=== PATIENT | female | born 1970 | race Caucasian/White ===

== ENCOUNTER → 2019-03-15 | Outpatient (CLI) | payer BC ==
--- NOTE | 2019-03-19 08:46 | MM ---
Reason for exam: screening (asymptomatic). Last mammogram was performed 4 years and 2 months ago. History: Family history of breast cancer in aunt. Took hormonal contraceptives for 6 years. Physical Findings: A clinical breast exam by your physician is recommended on an annual basis and results should be correlated with mammographic findings. MG 3D Screening Mammo W/Cad Bilateral CC and MLO view(s) were taken. Prior study comparison: January 10, 2015, bilateral MG screening mammo w CAD. April 23, 2013, bilateral digital screening mammo w/CAD. The breast tissue is extremely dense which could obscure a lesion on mammography. No significant changes when compared with prior studies. ASSESSMENT: Negative, BI-RAD 1 RECOMMENDATION: Routine screening mammogram of both breasts in 1 year.
== END | disposition home or self-care (01) ==
LOC: RADMAMWWP 14:25
PROVIDERS: ATTEND Obstetrics & Gynecology
DX: Z12.31 Encounter for screening mammogram for malignant neoplasm of breast (principal); Z80.3 Family history of malignant neoplasm of breast
CPT/HCPCS: 77063; 77067

== ENCOUNTER → 2020-03-21 | Outpatient (CLI) | payer BC ==
--- NOTE | 2020-03-25 12:22 | MM ---
Reason for exam: screening (asymptomatic). Last mammogram was performed 1 year ago. History: Family history of breast cancer in aunt. Took hormonal contraceptives for 6 years. Physical Findings: A clinical breast exam by your physician is recommended on an annual basis and results should be correlated with mammographic findings. MG 3D Screening Mammo W/Cad Bilateral CC and MLO view(s) were taken. Prior study comparison: March 15, 2019, bilateral MG 3d screening mammo w/cad. January 10, 2015, bilateral MG screening mammo w CAD. The breast tissue is heterogeneously dense. This may lower the sensitivity of mammography. No significant changes when compared with prior studies. ASSESSMENT: Negative, BI-RAD 1 RECOMMENDATION: Routine screening mammogram of both breasts in 1 year.
== END | disposition home or self-care (01) ==
LOC: RADMAMWWP 13:00
PROVIDERS: ATTEND Obstetrics & Gynecology
DX: Z12.31 Encounter for screening mammogram for malignant neoplasm of breast (principal)
CPT/HCPCS: 77063; 77067

== ENCOUNTER → 2021-10-15 | Outpatient (CLI) | payer BC ==
--- NOTE | 2021-10-16 11:09 | MM ---
Reason for Exam: Screening (asymptomatic). Last mammogram was performed 1 year(s) and 7 month(s) ago. Patient History: Menarche at age 13. First Full-Term at age 22. Postmenopausal. Patient used Hormonal Contraceptives for 6 years. Maternal aunt had breast cancer. Risk Values: Courtney 5 year model risk: 0.9%. NCI Lifetime model risk: 7.9%. Prior Study Comparison: 01/10/2015 Bilateral Screening Mammogram, [facility]. 03/15/2019 Bilateral Screening Mammogram, [facility]. 03/21/2020 Bilateral Screening Mammogram, [facility]. Tissue Density: The breast tissue is heterogeneously dense. This may lower the sensitivity of mammography. Findings: Analyzed By CAD. Grouped calcifications within the medial right breast posterior depth not definitively visualized on additional imaging. Overall Assessment: Incomplete: need additional imaging evaluation, BI-RAD 0 Management: Diagnostic Mammogram of the right breast. A clinical breast exam by your physician is recommended on an annual basis and results should be correlated with mammographic findings. Electronically signed and approved by: Saw Lyn DO
== END | disposition home or self-care (01) ==
LOC: RADMAMWWP 15:30
PROVIDERS: ATTEND Obstetrics & Gynecology
DX: Z12.31 Encounter for screening mammogram for malignant neoplasm of breast (principal); R92.1 Mammographic calcification found on diagnostic imaging of breast; Z78.0 Asymptomatic menopausal state; Z80.3 Family history of malignant neoplasm of breast
CPT/HCPCS: 77063; 77067

== ENCOUNTER → 2021-10-20 | Outpatient (CLI) | payer BC ==
--- NOTE | 2021-10-21 08:40 | MM ---
Reason for Exam: Additional evaluation requested from abnormal screening. Last screening mammogram was performed less than 1 month ago. Patient History: Menarche at age 13. First Full-Term at age 22. Postmenopausal. Patient used Hormonal Contraceptives for 6 years. Maternal aunt had breast cancer. Risk Values: Courtney 5 year model risk: 0.9%. NCI Lifetime model risk: 7.9%. Tissue Density: Right: The breast tissue is heterogeneously dense. This may lower the sensitivity of mammography. Findings: Analyzed By CAD. There is calcifications in the inner upper posterior margin of the right breast. Overall Assessment: Suspicious, BI-RAD 4 Management: Stereotactic Core Biopsy of the right breast. A clinical breast exam by your physician is recommended on an annual basis and results should be correlated with mammographic findings. This exam should not preclude additional follow-up of suspicious palpable abnormalities. Results were given to the patient verbally at the time of exam. Electronically signed and approved by: Eric Vargas M.D. Radiologis
== END | disposition home or self-care (01) ==
LOC: RADMAMWWP 14:02
PROVIDERS: ATTEND Obstetrics & Gynecology
DX: R92.8 Other abnormal and inconclusive findings on diagnostic imaging of breast (principal); Z78.0 Asymptomatic menopausal state; Z80.3 Family history of malignant neoplasm of breast
CPT/HCPCS: 77061; 77065

== ENCOUNTER → 2021-11-20 | Day surgery (SDC) | payer BC ==
[2021-11-20 07:23] VITALS: BP 117/77; PULSE 58; RESP 16; TEMP 98.1
--- NOTE | 2021-11-20 08:11 | MM ---
EXAM: MG stereo VAD BX RT DATE OF EXAM: 11/20/2021 COMPARISON: Prior mammogram October 20, 2021 and older mammograms. DESCRIPTION: The procedure of stereotactic guided core biopsy was explained to the patient. Benefits, alternatives, and risks were discussed. An informed consent was then obtained. Case is reviewed prior to procedure. No definitive new suspicious group of microcalcification is present. A single slightly larger calcification in the right breast slightly inner upper aspect on spot magnification views is seen through 2019 mammogram on cc view. Impression: Canceled stereotactic guided core biopsy. No suspicious group of microcalcifications to warrant sampling currently. Patient and surgeon were agreeable with above recommendations BI-RADS 3 probable benign finding Recommendation: Precautionary diagnostic right breast mammogram follow-up in 6 months time. PRASAD
--- NOTE | 2021-11-20 08:16 | P.GSHP ---
History of Present Illness H&P Date: 11/20/21 Chief Complaint: abnormal right breast mammogram Danii is a 51 year old white female seen in consultation for DR. Smith regarding an abnormal right breast mammogram. [place] [address]. Calcifications within the medial right breast were identified and additional views of the right breast recommended. No lesions of concern were seen in the left [place] [id number]. The patient was noted to have calcifications in the inner upper posterior margin of the right breast. Initially it was recommended she undergo stereotactic core biopsy. Review of the radiographs with Dr. Krause however was performed and it w as felt that these calcifications did not require a biopsy at this time. The patient has not noted any new lumps masses or nodules of concern in either breast. She is not complaining of any nipple discharge or skin changes. She's never had any surgery on her breast. She does have a history of fibrocystic breast changes. Caffeine: occasional chocolate: weekly nicotine: none BCP: less than a year, stopped 18 years ago Family history: maternal aunt: breast cancer of this in 40's maternal aunt: breast cancer maternal aunt: breast cancer (3 total of 7 maternal aunts with breast cancer) paternal grandfather: esophogus cancer paternal grandmother: stomach cancer pateranl aunt: stomach cancer father: brain cancer Hormonal History: menarche: 13 M1, breast fed: yes; age at first :22 menopause: 50 hormones: none Surgical history: appy Medical History: none Social history: Nicotine: Negative Alcohol:none drugs: none - Constitutional Constitutional: Reports sweats - EENT Eyes: denies blurred vision, denies pain Ears: deny: decreased hearing, tinnitus Ears, nose, mouth and throat: Denies headache, Denies sore throat - Breasts Breasts: bilateral: as per HPI - Cardiovascular Cardiovascular: Denies chest pain, Denies shortness of breath - Respiratory Respiratory: Denies cough, Denies 7 - Gastrointestinal Gastrointestinal: Denies abdominal pain, Denies diarrhea, Denies nausea, Denies vomiting - Genitourinary (Female) Genitourinary: Denies dysuria, Denies hematuria - Menstruation Menstruation: Reports postmenopausal - Musculoskeletal Comment: joint pain Musculoskeletal: Denies myalgias - Integumentary Integumentary: Denies pruritus, Denies rash - Neurological Neurological: Denies numbness, Denies weakness - Psychiatric Psychiatric: Denies anxiety, Denies depression - Endocrine Comment: gain weight related to menopause Endocrine: Reports fatigue - Hematologic/Lymphatic Comment: none - Allergic/Immunologic Allergic/Immunologic: Reports as per HPI Past Medical History Past Medical History: No Reported History History of Any Multi-Drug Resistant Organisms: None Reported Past Surgical History: Appendectomy Past Anesthesia/Blood Transfusion Reactions: No Reported Reaction Past Psychological History: No Psychological Hx Reported Smoking Status: Never smoker Past Alcohol Use History: Rare Past Drug Use History: None Reported Medications and Allergies Home Medications Medication Instructions Recorded Confirmed Type No Known Home Medications 10/21/21 11/20/21 History Allergies Allergy/AdvReac Type Severity Reaction Status Date / Time acetaminophen Allergy Rash/Hives Verified 11/20/21 07:14 [From Sudafed PE Severe Cold] diphenhydramine Allergy Rash/Hives Verified 11/20/21 07:14 [From Sudafed PE Severe Cold] Penicillins Allergy Rash/Hives Verified 11/20/21 07:14 phenylephrine Allergy Rash/Hives Verified 11/20/21 07:14 [From Sudafed PE Severe Cold] Surgical - Exam Vital Signs Temp Pulse Resp BP 98.1 F 58 L 16 117/77 11/20/21 07:15 11/20/21 07:15 11/20/21 07:15 11/20/21 07:15 BMI: 30.3 - General well developed, well nourished, no distress - Eyes normal ocular movement - ENT no congestion - Neck trachea midline - Respiratory normal respiratory effort, clear to auscultation - Cardiovascular Rhythm: regular Heart Sounds: normal: S1, S2 - Abdomen Abdomen: soft, non tender, no guarding, no rigid, no rebound - Integumentary normal turgor - Neurologic no disoriented, no combative - Musculoskeletal normal gait - Psychiatric oriented to time, oriented to person, oriented to place, speech is normal, memory intact Breast Exam: BRA: 34B Inspection: Bilateral grade 2 ptosis Palpation: Right breast: Multi-positional exam fibrocystic changes no dominant masses or nodules of concern Right axilla: No adenopathy of concern Left breast: Multiple positional exam fibrocystic changes no dominant masses or nodules of concern Left axilla: No adenopathy of concern Results Mammogram reviewed in detail with Dr. Krause at this time he feels that the lesion initially noted was present in the past and does not require biopsy Assessment and Plan Assessment: Impression: Fibrocystic breast changes Questionable abnormality on mammogram which appears to have been stable over the past several years Strong family history of breast cancer Plan: At this time we'll plan on repeat mammogram in 6 months with a physician exam at that time The patient notes any changes she will be seen sooner Patient encouraged to abstain from caffeine, she will use vitamin E and [place] oil Cc: Dr. Smith
== END ==
LOC: RADMAMWWP 07:09
PROVIDERS: ATTEND Surgery
DX: R92.8 Other abnormal and inconclusive findings on diagnostic imaging of breast (principal); Z53.8 Procedure and treatment not carried out for other reasons

== ENCOUNTER → 2022-04-29 | Outpatient (CLI) | payer BC ==
--- NOTE | 2022-04-29 10:29 | MM ---
Reason for Exam: Follow-up at short interval from prior study. Last screening mammogram was performed 6 month(s) ago. Patient History: Menarche at age 13. First Full-Term at age 22. Postmenopausal. Patient has history of breast feeding. Patient used Hormonal Contraceptives for 6 years. 11/20/2021, MG discontinued stereo core RT on the right side. Maternal aunt had breast cancer at or over age 50. Maternal aunt had breast cancer at or over age 50. Risk Values: Courtney 5 year model risk: 0.9%. NCI Lifetime model risk: 7.9%. Prior Study Comparison: 01/10/2015 Bilateral Screening Mammogram, [facility]. 03/15/2019 Bilateral Screening Mammogram, [facility]. 03/21/2020 Bilateral Screening Mammogram, [facility]. 10/15/2021 Bilateral MG 3D screening mammo w/cad, [facility]. 10/20/2021 Right MG 3D work up w/cad RT, [facility]. Tissue Density: Right: The breast tissue is heterogeneously dense. This may lower the sensitivity of mammography. Findings: Analyzed By CAD. Six-month follow-up after after canceled biopsy for calcifications which could not be adequately visualized in the targeting window. The loosely grouped/regional calcifications centrally in the right breast remain unchanged for 6 months. Initial short interval follow-up recommended. Overall Assessment: Probably benign, BI-RAD 3 Management: Diagnostic Mammogram of both breasts in 6 months. Total one-year follow-up right breast for loosely grouped/regional microcalcifications after canceled stereotactic biopsy. Annual exam of the left breast. Patient should continue monthly self breast exams. Results were given to the patient verbally at the time of exam. Electronically signed and approved by: Loly Ivan M.D. Radiologist
== END | disposition home or self-care (01) ==
LOC: RADMAMWWP 09:32
PROVIDERS: ATTEND Surgery
DX: R92.8 Other abnormal and inconclusive findings on diagnostic imaging of breast (principal); Z78.0 Asymptomatic menopausal state; Z80.3 Family history of malignant neoplasm of breast
CPT/HCPCS: 77061; 77065

== ENCOUNTER → 2022-07-02 | Outpatient (CLI) | payer BC ==
[2022-07-02 10:39] VITALS: BP 115/78; PULSE 62; RESP 16; TEMP 98.3
--- NOTE | 2022-07-02 11:56 | P.PN ---
Subjective Progress Note Date: 07/02/22 Danii is a 51 year old white female seen in consultation for DR. Smith regarding an abnormal right breast mammogram. [place] [id number]. Calcifications within the medial right breast were identified and additional views of the right breast recommended. No lesions of concern were seen in the left [place] [id number]. The patient was noted to have calcifications in the inner upper posterior margin of the right breast. Initially it was recommended she undergo stereotactic core biopsy. Review of the radiographs with Dr. Krause however was performed and it was felt that these calcifications did not require a biopsy at this time. The patient has not noted any new lumps masses or nodules of concern in either breast. She is not complaining of any nipple discharge or skin changes. She's never had any surgery on her breast. She does have a history of fibrocystic breast changes. 07-01-22 The patient had a right breast mammogram on 04-29-22. The patient's mammogram revealed that it was a six-month follow-up after her cancel biopsy for calcifications which could not be adequately visualized and the targeting window for stereo biopsy. The loosely grouped regional calcification centrally in the right breast remained unchanged for 6 months. An initial short interval follow- up was recommended. The patient herself does not feel any new lumps masses or nodules of concern in either breast. This was felt to be probably benign BIRADS 3 and bilateral breast mammogram in 6 months was recommended. Patient has declined exam at this time. Caffeine: occasional chocolate: weekly nicotine: none BCP: less than a year, stopped 18 years ago Family history: maternal aunt: breast cancer of this in 40's maternal aunt: breast cancer maternal aunt: breast cancer (3 total of 7 maternal aunts with breast cancer) paternal grandfather: esophogus cancer paternal grandmother: stomach cancer pateranl aunt: stomach cancer father: brain cancer Hormonal History: menarche: 13 M1, breast fed: yes; age at first :22 menopause: 50 hormones: none Surgical history: appy Medical History: none Social history: Nicotine: Negative Alcohol:none drugs: none - Constitutional Constitutional: Reports sweats - EENT Eyes: denies blurred vision, denies pain Ears: deny: decreased hearing, tinnitus Ears, nose, mouth and throat: Denies headache, Denies sore throat - Breasts Breasts: bilateral: as per HPI - Cardiovascular Cardiovascular: Denies chest pain, Denies shortness of breath - Respiratory Respiratory: Denies cough - Gastrointestinal Gastrointestinal: Denies abdominal pain, Denies diarrhea, Denies nausea, Denies vomiting - Genitourinary (Female) Genitourinary: Denies dysuria, Denies hematuria - Menstruation Menstruation: Reports postmenopausal - Musculoskeletal Comment: joint pain Musculoskeletal: Denies myalgias - Integumentary Integumentary: Denies pruritus, Denies rash - Neurological Neurological: Denies numbness, Denies weakness - Psychiatric Psychiatric: Denies anxiety, Denies depression - Endocrine Comment: gain weight related to menopause Endocrine: Reports fatigue - Hematologic/Lymphatic Comment: none - Allergic/Immunologic Allergic/Immunologic: Reports as per HPI Past Medical History Past Medical History: No Reported History History of Any Multi-Drug Resistant Organisms: None Reported Past Surgical History: Appendectomy Past Anesthesia/Blood Transfusion Reactions: No Reported Reaction Past Psychological History: No Psychological Hx Reported Smoking Status: Never smoker Past Alcohol Use History: Rare Past Drug Use History: None Reported Medications and Allergies Home Medications Medication Instructions Recorded Confirmed Type No Known Home Medications 10/21/21 11/20/21 History Allergies Allergy/AdvReac Type Severity Reaction Status Date / Time acetaminophen Allergy Rash/Hives Verified 11/20/21 07:14 [From Sudafed PE Severe Cold] diphenhydramine Allergy Rash/Hives Verified 11/20/21 07:14 [From Sudafed PE Severe Cold] Penicillins Allergy Rash/Hives Verified 11/20/21 07:14 phenylephrine Allergy Rash/Hives Verified 11/20/21 07:14 [From Sudafed PE Severe Cold] Objective - Vital Signs Vital signs: Vital Signs Temp 98.3 F 07/02/22 10:35 Pulse 62 07/02/22 10:35 Resp 16 07/02/22 10:35 BP 115/78 07/02/22 10:35 Pulse Ox 96 07/02/22 10:35 FiO2 Intake & Output 07/01/22 07/02/22 07/02/22 18:59 06:59 18:59 Weight 68.492 kg - Constitutional General appearance: Present: cooperative - EENT Eyes: Present: EOMI ENT: Present: hearing grossly normal - Neck Neck: Present: normal ROM - Respiratory Respiratory: bilateral: CTA - Cardiovascular Rhythm: regular Heart sounds: normal: S1, S2 - Gastrointestinal General gastrointestinal: Present: soft - Integumentary Integumentary: Present: normal turgor - Musculoskeletal Musculoskeletal: Present: gait normal - Psychiatric Psychiatric: Present: A&O x's 3, appropriate affect, intact judgment & insight - Additional findings Additional findings: Breast Exam: BRA: 34B Inspection: Bilateral grade 2 ptosis Palpation: Right breast: Multi-positional exam fibrocystic changes no dominant masses or nodules of concern Right axilla: No adenopathy of concern Left breast: Multiple positional exam fibrocystic changes no dominant masses or nodules of concern Left axilla: No adenopathy of concern Assessment and Plan Assessment: Impression: Fibrocystic breast changes Questionable abnormality on this mammogram which was unable to be targeted for stereo biopsy, a repeat right breast mammogram 120 [id number] appears that the area stable and bilateral mammogram in 6 months is recommended Strong family history of breast cancer Plan: Bilateral mammogram 6 months with a physician exam at that time The patient is still considering genetic testing The patient notes any changes she will be seen sooner Patient encouraged to abstain from caffeine, she will use vitamin E and [place] oil Cc: Dr. Smith
== END ==
LOC: WWCWWP 10:20
PROVIDERS: ATTEND Surgery
DX: N60.11 Diffuse cystic mastopathy of right breast (principal); R92.8 Other abnormal and inconclusive findings on diagnostic imaging of breast; N60.12 Diffuse cystic mastopathy of left breast; Z80.3 Family history of malignant neoplasm of breast; Z88.0 Allergy status to penicillin; Z90.49 Acquired absence of other specified parts of digestive tract; Z88.6 Allergy status to analgesic agent; Z88.8 Allergy status to other drugs, medicaments and biological substances

== ENCOUNTER → 2022-11-01 | Outpatient (CLI) | payer BC ==
--- NOTE | 2022-11-01 09:06 | MM ---
Reason for Exam: Follow-up at short interval from prior study. Last screening mammogram was performed 12 month(s) ago. Patient History: Menarche at age 13. First Full-Term at age 22. Postmenopausal. Patient has history of breast feeding. Patient used Hormonal Contraceptives for 6 years. 11/20/2021, MG discontinued stereo core RT on the right side. Maternal aunt had breast cancer at or over age 50. Maternal aunt had breast cancer at or over age 50. Risk Values: Courtney 5 year model risk: 0.9%. NCI Lifetime model risk: 7.8%. Tissue Density: The breast tissue is heterogeneously dense. This may lower the sensitivity of mammography. Findings: Analyzed By CAD. Post indications in the right breast middle depth posterior nipple line have not significantly changed. No new suspicious masses, calcifications or distortions. Overall Assessment: Benign, BI-RAD 2 Management: Screening Mammogram of both breasts in 1 year. Results were given to the patient verbally at the time of exam. Patient should continue monthly self-breast exams. A clinical breast exam by your physician is recommended on an annual basis. This exam should not preclude additional follow-up of suspicious palpable abnormalities. Note on Courtney scores and lifetime risk: 1. A Courtney score greater than 3% is considered moderate risk. If this is the case, consider specialist referral to assess eligibility for a risk reducing agent. 2. If overall lifetime risk for the development of breast cancer is 20% or higher, the patient may qualify for future screening with alternating mammogram and breast MRI. Electronically signed and approved by: Saw Lyn DO
== END | disposition home or self-care (01) ==
LOC: RADMAMWWP 08:24
PROVIDERS: ATTEND Surgery
DX: R92.8 Other abnormal and inconclusive findings on diagnostic imaging of breast (principal); Z78.0 Asymptomatic menopausal state; Z80.3 Family history of malignant neoplasm of breast
CPT/HCPCS: 77062; 77066

== ENCOUNTER → 2024-02-03 | Outpatient (CLI) | payer OTHER ==
--- NOTE | 2024-02-06 07:50 | MM ---
Reason for Exam: Screening (asymptomatic). Last mammogram was performed 1 year(s) and 4 month(s) ago. Patient History: Menarche at age 13. First Full-Term at age 22. Postmenopausal. Patient has history of breast feeding. Patient used Hormonal Contraceptives for 6 years. 11/20/2021, MG discontinued stereo core RT on the right side. Maternal aunt had breast cancer at or over age 50. Maternal aunt had breast cancer at or over age 50. Risk Values: Courtney 5 year model risk: 1.0%. NCI Lifetime model risk: 7.7%. Prior Study Comparison: 10/20/2021 Right MG 3D work up w/cad RT, [facility]. 04/29/2022 Right MG 3D diag mammo w/cad RT, [facility]. 11/01/2022 Bilateral MG 3D diag mammo w/cad PRAKASH, [facility]. Tissue Density: The breasts are extremely dense, which lowers the sensitivity of mammography. Findings: Analyzed By CAD. There is no suspicious group of microcalcifications or new suspicious mass in either breast. Overall Assessment: Benign, BI-RAD 2 Management: Screening Mammogram of both breasts in 1 year. . Patient should continue monthly self-breast exams. A clinical breast exam by your physician is recommended on an annual basis. This exam should not preclude additional follow-up of suspicious palpable abnormalities. Note on Courtney scores and lifetime risk: 1. A Courtney score greater than 3% is considered moderate risk. If this is the case, consider specialist referral to assess eligibility for a risk reducing agent. 2. If overall lifetime risk for the development of breast cancer is 20% or higher, the patient may qualify for future screening with alternating mammogram and breast MRI. [facility], , 02/06/2024 7:47 AM. Electronically signed and approved by: Eric Vargas M.D. Radiologis
== END | disposition home or self-care (01) ==
LOC: RADMAMWWP 11:30
PROVIDERS: ATTEND Obstetrics & Gynecology
DX: Z12.31 Encounter for screening mammogram for malignant neoplasm of breast (principal); Z78.0 Asymptomatic menopausal state; Z80.3 Family history of malignant neoplasm of breast; R92.343 Mammographic extreme density, bilateral breasts
CPT/HCPCS: 77063; 77067